=== PATIENT | female | born 1985 | race Caucasian/White ===

== ENCOUNTER 2024-05-20 17:10 | Emergency (ER) | payer OTHER ==
[2024-05-20] MEDS ORDERED: Acetaminophen 325 MG TAB ONE (18:49)
[2024-05-20 18:58] LABS: ALT (SGPT) 69 U/L (8-55); AST (SGOT) 48 U/L (5-34); Albumin 3.5 g/dL (3.5-5.0); Alkaline Phosphatase 142 U/L (40-110); Anion Gap 16 mmol/L (10-20); BUN (Urea Nitrogen) 87 mg/dL (7.0-18.7); Bilirubin, Total 0.3 mg/dL (0.2-1.2); Calc. Creatinine Clearance 0 mL/min (70-130); Calcium 9.5 mg/dL (7.8-10.44); Carbon Dioxide 17 mmol/L (22-29); Chloride 106 mmol/L (98-107); Estimated GFR 20; Glucose 87 mg/dL (70-105); Potassium 4.8 mmol/L (3.5-5.1); Protein, Total 7.5 g/dL (6.0-8.3); Sodium 134 mmol/L (136-145)
[2024-05-20 19:14] LABS: #Basophils 0.05 10x3/uL (0.0-0.2); #Eosinophils 0.34 10x3/uL (0.0-0.5); #Monocytes 0.89 10x3/uL (0.0-1.1); #Neutrophils 6.23 10x3/uL (1.5-8.4); %Basophils 0.5 % (0.0-2.0); %Eosinophils 3.4 % (0.0-6.0); %Lymphocytes 23.3 % (18.0-47.0); %Monocytes 8.9 % (0.0-10.0); %Neutrophils 62.6 % (40.0-75.0); Hematocrit 32.3 % (34.9-44.5); Hemoglobin 11.2 g/dL (12.0-15.5); Mean Corpuscular HGB CONC 34.7 g/dL (32.0-36.0); Mean Corpuscular Hemoglobin 27.7 pg (27.0-33.0); Mean Corpuscular Volume 79.8 fL (81.6-98.3); Mean Platelet Volume 9.1 fL (7.4-10.4); Platelet Count 181 10x3/uL (150-450); Red Blood Cell (RBC) Count 4.05 10x6/uL (3.90-5.03)
== END 2024-05-20 21:14 | disposition home or self-care (01) ==
LOC: CSHERS 17:10
DX: B34.9 Viral infection, unspecified (principal)
CPT/HCPCS: 71045; 80053; 85025; 87428

== ENCOUNTER 2024-07-16 07:54 | Emergency (ER) | payer OTHER ==
[2024-07-16] MEDS ORDERED: Acetaminophen 325 MG TAB ONE (08:21)
== END 2024-07-16 09:35 | disposition home or self-care (01) ==
LOC: CSHERS 07:54
DX: M25.522 Pain in left elbow (principal); M25.562 Pain in left knee; I12.9 Hypertensive chronic kidney disease with stage 1 through stage 4 chronic kidney disease, or unspecified chronic kidney disease; N18.9 Chronic kidney disease, unspecified; W55.12XA Struck by horse, initial encounter
CPT/HCPCS: 99283